=== PATIENT | male | born 1975 | race Hispanic/Latino ===

== ENCOUNTER 2018-01-23 11:44 | Emergency (ER) | payer BC, OTHER ==
[2018-01-23] MEDS ORDERED: AMOXICILLIN/POTASSIUM CLAV 875-125 TABLET PO ONE (12:24)
[2018-01-23] MEDS ORDERED: IBUPROFEN 600 MG TABLET ONE (12:24)
== END 2018-01-23 13:03 | disposition home or self-care (01) ==
LOC: EDH 11:44
DX: L03.012 Cellulitis of left finger (principal); Z72.0 Tobacco use
CPT/HCPCS: 10060

== ENCOUNTER 2019-07-18 18:46 | Emergency (ER) | payer OTHER ==
[2019-07-18] MEDS ORDERED: KETOROLAC TROMETHAMINE 60 MG/2 ML VIAL ONE (19:26)
[2019-07-18] MEDS ORDERED: DEXAMETHASONE SOD PHOSPHATE 10MG/ML 1ML VIAL ONE (19:26)
[2019-07-18] MEDS ORDERED: HYDROCODONE/ACETAMINOPHEN 10/325 MG TAB ONE (19:27)
== END 2019-07-18 19:59 | disposition home or self-care (01) ==
LOC: EDH 18:46
DX: M54.5 Low back pain (principal); G89.29 Other chronic pain
CPT/HCPCS: 96372 ×2; 99284; J1100; J1885